=== PATIENT | male | born 1990 | race African-American/Black ===

== ENCOUNTER 2020-06-03 10:39 | Emergency (ER) | payer OTHER ==
[~2020-06-03] VITALS: Ht 167.6 cm; Wt 87.1 kg
[2020-06-03 10:45] VITALS: TEMP 98.3
[2020-06-03 12:08] VITALS: BP 118/78
== END 2020-06-03 12:08 | disposition home or self-care (01) ==
LOC: ED 10:39
DX: S80.02XA Contusion of left knee, initial encounter (principal); V89.2XXA Person injured in unspecified motor-vehicle accident, traffic, initial encounter; Y92.89 Other specified places as the place of occurrence of the external cause
CPT/HCPCS: 99282